=== PATIENT | female | born 1980 | race Caucasian/White ===

== ENCOUNTER → 2023-05-20 07:44 | Outpatient (REF) | payer OTHER, SELFPAY | LOC: PNTC 07:44 | PROVIDERS: ATTENDING PHYSICIAN Obstetrics & Gynecology | DX: O99.210 Obesity complicating pregnancy, unspecified trimester (principal); O09.529 Supervision of elderly multigravida, unspecified trimester; O35.5XX0 Maternal care for (suspected) damage to fetus by drugs, not applicable or unspecified | CPT/HCPCS: 76805 ==

== ENCOUNTER → 2023-06-17 13:23 | Outpatient (REF) | payer OTHER, SELFPAY | LOC: PNTC 13:23 | PROVIDERS: ATTENDING PHYSICIAN Obstetrics & Gynecology | DX: O09.529 Supervision of elderly multigravida, unspecified trimester (principal); O35.5XX0 Maternal care for (suspected) damage to fetus by drugs, not applicable or unspecified; O44.00 Complete placenta previa NOS or without hemorrhage, unspecified trimester | CPT/HCPCS: 76811; 76817 ==

== ENCOUNTER 2023-07-12 20:57 | Emergency (ER) | payer OTHER, SELFPAY ==
[2023-07-12 21:05] VITALS: BP 134/87
[2023-07-12] MEDS: NSS 1000 IV (21:41)
[2023-07-12 21:44] LABS: % Basophils 0.3 % (0-2); % Immature Granulocytes 0.7 % (0-0.5); % Lymphocytes 13.3 % (20.5-51.1); % Monocytes 4.8 % (1.7-9.3); % Neutrophils 78.9 % (42.2-75.2); Absolute Basophils 0.1 10^3/uL (0-0.2); Absolute Eosinophils 0.3 10^3/uL (0-0.7); Absolute Immature Granulocytes 0.1 10^3/uL (0-0.05); Absolute Lymphocytes 2.2 10^3/uL (1.2-3.4); Absolute Monocytes 0.8 10^3/uL (0.1-0.6); Absolute Neutrophils 12.8 10^3/uL (1.4-6.5); Hematocrit 33.5 % (37.0-47.0); Mean Corp Hgb Conc. 35.8 g/dL (33.0-37.0); Mean Corpuscular Hgb 30.2 pg (27.0-31.0); Mean Corpuscular Volume 84.4 fL (81.0-99.0); Mean Platelet Volume 10.7 fL (7.4-10.4); Nucleated Red Blood Cells % 0 %; Platelet Count 225 10^3/uL (130-400); Red Blood Cell Count 3.97 10^6/uL (4.20-5.40); Red Cell Dist. Width 14.3 % (11.5-14.5); White Blood Cell Count 16.3 10^3/uL (4.8-10.8)
--- NOTE | 2023-07-12 21:47 | ED.GENMED ---
Addendum entered and electronically signed by Reynaldo Salmon PA-C 07/13/23 10:48:
Patient was seen by psychiatry. Patient would be able to be placed at [facility] however prior to disposition there patient will need a ultrasound for her due to a history of placenta previa. Ultrasound was ordered to further evaluate with
anticipation of patient being dispositioned to [facility].
Original Note:
History of Present Illness
General
Chief Complaint: Overdose Intentional
Source: patient
Exam Limitations: none
Time Seen by Provider: 07/12/23 21:25
Nursing documentation reviewed up to this point in time: agreed with
Travel History
Have you had any contact with someone who has COVID-19?: No
Do you have any symptoms of coronavirus? Fever > 100 degrees, chills, cough, shortness of breath, sore throat, loss of taste or smell, muscle aches, or headache?: No
History of Present Illness
History of Present Illness:
43-year-old female with past medical history of asthma, anxiety, history of polysubstance use who is currently 6 months who presents to the emergency department for evaluation after overdose on Adderall. Patient reports that she has been
very overwhelmed recently between the and some domestic problems�she says that she has been having issues with her son's behavior. She says that today she was extremely overwhelmed and was having trouble focusing and so she took a few
doses of Adderall�she says that she obtained 10 mg tablets and throughout the course of the day she took she thinks approximately nine total 10 mg tablets. She estimates first ingestion was around 2 PM and last ingestion was around 6:30 PM. She
says that as the evening went on she began to feel palpitations, anxiety and family noticed that his behavior was pressured and hyperactive. She says that she took a dose of Xanax 0.5 mg to treat the symptoms and had family bring her to the
emergency room to be assessed. She says that the Xanax completely resolved her symptoms and she now is asymptomatic. She denies any chest pain, palpitations, shortness of breath. Denies any headache. Denies any abdominal pain. She has not had
any vaginal bleeding or leakage of fluid. She does admit to feeling very stressed and overwhelmed and is very regretful that she took these medications today. She tells me that she did not intend to kill herself but just needed 'some clarity.'
She denies any suicidal ideation to me. She says that she did have a distant history of suicide attempt when she was a teenager after her mom .
Past History
Past History
ED Past Medical History: Asthma, GERD, Seizures and Other (Anxiety)
ED Past Surgical History: Orthopedic
Social History
Tobacco: Non-smoker
Alcohol: None
Drug: None
Personal: Other
Living: with family
Employment: Other
Family History
Family History: Other (nc)
Review of Systems
Review of Systems
All Other Systems: ROS reviewed and negative except as documented in HPI and ROS
Constitutional: Denies fever
Respiratory: Denies cough or trouble breathing
Cardiac: Denies chest pain, diaphoresis, palpitations or syncope
ABD/GI: Denies abdominal pain, nausea, vomiting or diarrhea
: Denies flank pain
Musculoskeletal: Denies neck pain or back pain
Neurological: Denies dizzy, headache, weakness or numbness
Psychiatric: Reports anxiety; Denies suicidal or hallucinations
Phy Exam
Physical Exam
Physical Exam:
General: Awake, alert; patient is tearful and anxious
Head: Normocephalic, atraumatic
Eyes: Conjunctiva normal, EOMI, pupils 5 mm and reactive to light bilaterally
Throat: Airway intact, handling secretions, moist mucous membranes
Neck: Trachea midline, supple without meningismus
Lungs: Clear to auscultation bilaterally, no wheezing, rales, rhonchi
Heart: Tachycardia with regular rhythm, no murmurs, gallops, or rubs
Abd: Soft, nontender, appropriate size for gestational age
Neuro: Cranial nerves grossly intact, speech fluid
Skin: no rash, dry
Extremities: No edema in extremities, equal pulses in all extremities
Scores
Heart Failure Risk
Heart Failure Risk Score: Not Applicable
Heart Score for Chest Pain Patients
STEMI patient?: Not applicable
Withdrawal Assessment of Alcohol
Withdrawal Assessment Completed?: Not applicable
Course
Orders/Labs/Results
Orders:
Orders
07/12/23 21:08
Electrocardiogram (*1) Urgent
Reason for Study: Tachycardia
EKG- Treatment ONCE
07/12/23 21:27
Electrocardiogram (*1) Urgent
Reason for Study: QTc Monitoring
Crisis Consult Routine
Reason for Consult: overdose
EKG- Treatment ONCE
07/12/23 21:28
Acetaminophen Urgent
Alcohol Urgent
Complete Blood Count/With Diff Urgent
Comprehensive Metabolic Panel Urgent
Salicylate Urgent
0.9% Sodium Chloride 1000 ml [Nss] 1,000 ml IV BOLUS
07/12/23 22:51
Drug Screen, Urine [Urine Drug Abuse Screen] Urgent
Date Specimen was Collected: 07/12/23
Time Specimen was Collected: 22:47
Fentanyl, Urine Urgent
Abnormal Lab Results
07/12/23 07/12/23
21:28 22:51
WBC 16.3 H 10^3/uL
(4.8-10.8)
RBC 3.97 L 10^6/uL
(4.20-5.40)
Hct 33.5 L %
(37.0-47.0)
MPV 10.7 H fL
(7.4-10.4)
Abs Immat Gran (auto) 0.1 H 10^3/uL
(0-0.05)
Absolute Neuts (auto) 12.8 H 10^3/uL
(1.4-6.5)
Absolute Monos (auto) 0.8 H 10^3/uL
(0.1-0.6)
Immature Gran % 0.7 H %
(0-0.5)
Neutrophils % 78.9 H %
(42.2-75.2)
Lymphocytes % 13.3 L %
(20.5-51.1)
Sodium 132 L mmol/L
(135-145)
Chloride 108 H mmol/L
(98-107)
Carbon Dioxide 19 L mmol/L
(22-30)
Creatinine 0.5 L mg/dL
(0.6-1.0)
Salicylates < 1.0 L mg/dl
(2.0-20.0)
Ur Buprenorphine Positive H
(Negative)
Acetaminophen < 10 L ug/ml
(10-30)
Ur Amphetamines Screen Positive H
(Negative)
U Benzodiazepines Scrn Positive H
(Negative)
07/12/23 21:28
07/12/23 22:30
Vital Signs
Initial and Last Documented VS:
Initial Vital Signs
Temp Pulse Resp BP Pulse Ox
36.7 C 102 18 134/87 99
07/12/23 21:05 07/12/23 21:05 07/12/23 21:05 07/12/23 21:05 07/12/23 21:05
Last Documented Vital Signs
Temp Pulse Resp BP Pulse Ox
36.7 C 77 14 114/57 99
07/12/23 21:05 07/12/23 23:15 07/12/23 23:15 07/12/23 23:00 07/12/23 21:05
MDM/Problems Addressed
Differential Diagnosis Includes:
Overdose
MDM/Problems Addressed:
43-year-old female presents to the emergency room for evaluation after intentional overdose on Adderall�she says that she did this more for symptomatic relief of feeling of being overwhelmed/lack of focus rather than an attempted suicide. She did
take a single dose of 0.5 mg Xanax to treat the symptoms of her Adderall overdose, no other ingestions tonight. She currently feels well denies any complaints aside from feeling overwhelmed and upset about her actions. Vital signs significant only
for mild tachycardia with a heart rate of 102. Exam as above. Currently no significant sympathomimetic toxidrome. Will plan to place an IV send labs including a CBC and a CMP, Tylenol and salicylate levels, alcohol level and UDS. Will check a
screening EKG. I did discuss the case with [facility] Control [facility] recommended supportive care with benzos as needed for sympathomimetic symptoms, 6-hour observation from last ingestion which was reportedly around 6�6:30 PM. Discussed case with
COMPLIANCE AND CONTROL ANALYST and they will perform a bedside nonstress test. Will provide some IV fluids. Reassess after the above. She denies being actively suicidal to me and denies that this was a suicide attempt to me; nevertheless will have our crisis team doing
evaluation.
Labs reviewed: CBC shows slight leukocytosis likely reactive, CMP no clinically significant abnormalities. Tylenol and salicylate levels are negative, alcohol level negative. UDS positive for benzos and amphetamines in keeping with her admitted
ingestions this evening also positive for buprenorphine. EKG shows narrow complex QRS with normal QTc. Patient awake and alert very well-appearing normal vitals, heart rate in the 80s, normal blood pressure. She is much more calm. OB nurse at
bedside performing nonstress test. Crisis evaluation pending.
Nonstress test reassuring. Patient has remained awake and alert with reassuring vitals throughout her observation here she is now 6 hours from last ingestion and has been asymptomatic since arrival in the emergency room. At this point she is
cleared from medical perspective regarding her overdose. She is much more calm and no longer tearful, requesting to speak with crisis to discuss mental health options although again she continues to deny suicidal intent or ideation at this point.
Crisis coming to bedside to evaluate.
Crisis evaluated patient and will plan for inpatient psychiatric treatment under [facility] for depression and anxiety culminating in overdose today. Will continue to observe pending psychiatric placement.
Chronic conditions affecting care:
Anxiety
*Pulse Oximetry
Patient hypoxic: no
*Critical Care Note
Total Time (30-74mins, 75-104mins- exclusive of procedures): Not Applicable
Data Reviewed
Source: patient
Patient Management
Discussion with other providers: Engineer Technician (COMPLIANCE AND CONTROL ANALYST) and Other (Discussed with Poison Control Center)
ED Attending Note
-
Portions of this chart may have been created with voice recognition software.� Occasional wrong word or��sound alike� substitutions may have occurred due to the inherent limitations of voice recognition software.
Discharge Plan
Departure
Patient Disposition: Psych Facility
Date of Disposition: 07/12/23
Time of Disposition: 23:39
Patient with high blood pressure during this ER visit?: No
Discharge Problem:
Overdose, Depression affecting , Anxiety
Prescriptions:
No Action
albuterol sulfate [Ventolin HFA] 90 MCG/PUFF HFA aerosol inhaler
1 puff inhalation Q6HPRN PRN (Reason: asthma)
lamotrigine 100 MG tablet
200 mg PO DAILY
clonazepam 0.5 MG tablet
0.5 mg PO BID PRN (Reason: anxiety)
aripiprazole [Abilify] 5 mg Tablet
7.5 mg PO DAILY
pantoprazole [Protonix] 40 mg tablet,delayed release (DR/EC)
40 mg PO BID Qty: 120 0RF
oxycodone 5 mg capsule
5 mg PO Q8H PRN (Reason: severe pain) Qty: 3 0RF
ferrous sulfate 325 mg (65 mg iron) tablet
325 mg PO DAILY Qty: 30 0RF
oxycodone 5 mg capsule
5 mg PO Q8H PRN (Reason: severe pain) Qty: 3 0RF
cephalexin 500 mg capsule
500 mg PO BID 5 Days Qty: 10 0RF
Referrals:
UNKNOWN - PT DOES,NOT KNOW [Family Provider] -
Interventions
Interventions:
*Risk Screen - Suicide Last Done: 07/12/23 21:05
*General Assessment Last Done: 07/12/23 21:05
*Neglect/Abuse Screening Last Done: 07/12/23 21:05
ED- Fall Risk Assessment Last Done: 07/12/23 22:00
*ED COVID-19 Vaccine History Last Done: 07/12/23 21:05
ED- Cardiac Assessment Last Done: 07/12/23 22:00
ED- Neurological Assessment Last Done: 07/12/23 22:00
ED-Psychological Assessment Last Done: 07/12/23 22:00
ED- Pulmonary Assessment Last Done: 07/12/23 22:00
Discharge Date and Time
Print Language: MEXICAN
[2023-07-12 22:07] LABS: ALT (SGPT) 19 U/L (0-35); AST (SGOT) 27 U/L (14-36); Acetaminophen < 10 ug/ml (10-30); Albumin 3.7 g/dl (3.5-5.0); Alkaline Phosphatase 78 U/L (38-126); Blood Urea Nitrogen 8 mg/dl (7-17); Calcium 9.3 mg/dl (8.4-10.2); Carbon Dioxide 19 mmol/L (22-30); Chloride 108 mmol/L (98-107); Glucose 97 mg/dl (70-99); Potassium 3.9 mmol/L (3.5-5.1); Salicylate < 1.0 mg/dl (2.0-20.0); Sodium 132 mmol/L (135-145); Total Bilirubin 0.5 mg/dl (0.2-1.3); Total Protein 6.5 g/dl (6.3-8.2); eGFR > 60.00
[2023-07-12 22:08] LABS: Alcohol None Detected
[2023-07-12 22:54] VITALS: BP 120/61
--- NOTE | 2023-07-12 22:56 | CON.MD ---
Consultation - Medical
-
[id number] P3 003 @24+0 weeks gestation presents to the ER tonight with intentional overdose on Adderall 90 mg. Patient also took a Xanax when she started feeling anxious due to the Adderall. She does have a history of extreme anxiety and takes
multiple psychiatric medications. reportedly not having any any obstetrical symptoms tonight. The ER team is managing the overdose, for which patient is currently clinically stable with normal vital signs, other than mild tachycardia in the 100s.
Requested OB assistance to assess for well-being.
patient was seen in the ED by OB nursing staff this evening. The patient denies contractions, leakage of fluid or vaginal bleeding. She reports normal movement. An NST was performed and was reviewed by me. Baseline 150, reassuring for
gestational age, no contractions.
patient will complete evaluation with the ER staff and with the crisis management team. She was given strong return precautions for any obstetrical complaints and has follow up arranged in the [facility] this coming week and the OB clinic in a couple of
weeks. If patient is admitted for further medical or psychiatric care, please do not hesitate to reach out to OB so that we can perform regular testing for well-being and follow along with the patient's care.
Sabrina Parsons
[2023-07-12 23:00] VITALS: BP 114/57
[2023-07-12 23:09] LABS: Amphetamines Positive (Negative); Barbiturates Negative (Negative); Benzodiazepines Positive (Negative); Buprenorphine Positive (Negative); Cocaine Negative (Negative); Marijuana Negative (Negative); Methadone Negative (Negative); Methamphetamines Negative (Negative); Opiates Negative (Negative); Phencyclidine Negative (Negative); Tricyclic Antidepressants Negative (Negative)
[2023-07-12 23:17] LABS: Fentanyl, Urine Negative (Negative)
[2023-07-13] VITALS (8 sets, daily range): BP systolic 100–119; BP diastolic 42–67; BMI 35.0
[2023-07-13] MEDS: TYLENOL 1000 MG PO (00:09)
[2023-07-13] MEDS: DUONEB 3 ML INH (01:37)
--- NOTE | 2023-07-13 08:07 | EDRN ---
mental health personnel security assistant came out of the crisis room area and made this RN aware that the pt wanted to speak to the nurse, this RN entered the pts room and this RN found the pt hysterically crying stating to this RN, 'I am so sorry i am
just having a rough morning', the pt could barely speak due to crying so hard, this RN helped the pt with deep breathing, the pt was then able to speak, 'I am just so over whelmed with everything in my past i have this partner who loves me so much
and makes me want to be a better person and now i have all of this trauma that i didn't deal with in the past, in the past i used to just pop an oxy and call it a day but last night i took adderall and it makes me crazy and this morning i am just
feeling very over whelmed and i just can't relax', this RN notified Dr. Healyroad
--- NOTE | 2023-07-13 08:27 | EDRN ---
Dr. Vogt is speaking with OBGYN regarding medication that the pt can take for anxiety, this RN notified the pt
[2023-07-13] MEDS: XANAX 0.5 MG PO ×2 (11:22→17:12)
[2023-07-13] MEDS: TYLENOL 650 MG PO (13:49)
[2023-07-13 16:19] LABS: COVID-19 Antigen Negative (Negative)
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
== END 2023-07-13 17:43 ==
LOC: EMR 20:57
PROVIDERS: Emergency Medicine; EMERGENCY PHYSICIAN Emergency Medicine
DX: O99.891 Other specified diseases and conditions complicating pregnancy (principal); T43.622A Poisoning by amphetamines, intentional self-harm, initial encounter; O99.340 Other mental disorders complicating pregnancy, unspecified trimester; F41.9 Anxiety disorder, unspecified; Y92.9 Unspecified place or not applicable; J45.909 Unspecified asthma, uncomplicated; K21.9 Gastro-esophageal reflux disease without esophagitis; G40.909 Epilepsy, unspecified, not intractable, without status epilepticus; Z91.51 Personal history of suicidal behavior
CPT/HCPCS: 99284; 94640; 76801; 76817; 80053; 80143; 80179; 80306; 80307; 82077; 85025; 87811; 93005

== ENCOUNTER → 2023-08-12 07:27 | Outpatient (REF) | payer OTHER, SELFPAY | LOC: PNTC 07:27 | PROVIDERS: ATTENDING PHYSICIAN Obstetrics & Gynecology | DX: O09.529 Supervision of elderly multigravida, unspecified trimester (principal); O99.210 Obesity complicating pregnancy, unspecified trimester; O35.5XX0 Maternal care for (suspected) damage to fetus by drugs, not applicable or unspecified | CPT/HCPCS: 76816; 76817 ==

== ENCOUNTER 2023-08-27 11:03 | Observation (INO) | payer OTHER, SELFPAY ==
[2023-08-27 11:34] VITALS: BP 119/65; BMI 35.1
[2023-08-27 11:41] VITALS: BP 119/65
[2023-08-27 12:44] LABS: % Basophils 0.4 % (0-2); % Eosinophils 2.9 % (0-6); % Immature Granulocytes 0.9 % (0-0.5); % Lymphocytes 12.7 % (20.5-51.1); % Monocytes 4.2 % (1.7-9.3); % Neutrophils 78.9 % (42.2-75.2); Absolute Basophils 0.1 10^3/uL (0-0.2); Absolute Eosinophils 0.4 10^3/uL (0-0.7); Absolute Immature Granulocytes 0.1 10^3/uL (0-0.05); Absolute Lymphocytes 1.7 10^3/uL (1.2-3.4); Absolute Monocytes 0.6 10^3/uL (0.1-0.6); Absolute Neutrophils 10.5 10^3/uL (1.4-6.5); Hematocrit 32.8 % (37.0-47.0); Hemoglobin 11.2 g/dL (12.0-16.0); Mean Corp Hgb Conc. 34.1 g/dL (33.0-37.0); Mean Corpuscular Hgb 29.4 pg (27.0-31.0); Mean Corpuscular Volume 86.1 fL (81.0-99.0); Mean Platelet Volume 10.8 fL (7.4-10.4); Nucleated Red Blood Cells % 0 %; Platelet Count 201 10^3/uL (130-400); Red Blood Cell Count 3.81 10^6/uL (4.20-5.40); Red Cell Dist. Width 13.7 % (11.5-14.5); White Blood Cell Count 13.3 10^3/uL (4.8-10.8)
[2023-08-27 12:46] LABS: Urine Albumin Negative (Neg - Trace); Urine Bilirubin Negative (Negative); Urine Character Clear (Clear); Urine Color Yellow; Urine Glucose Negative (Negative); Urine Ketone Negative (Negative); Urine Leukocyte 1+ (Negative); Urine Nitrite Negative (Negative); Urine Occult Blood Negative (Negative); Urine Specific Gravity 1.005 (<1.030); Urine Urobilinogen Negative (Neg - 1+)
[2023-08-27 13:04] LABS: Amphetamines Negative (Negative); Barbiturates Negative (Negative); Benzodiazepines Positive (Negative); Buprenorphine Negative (Negative); Cocaine Negative (Negative); Marijuana Negative (Negative); Methadone Negative (Negative); Methamphetamines Negative (Negative); Opiates Negative (Negative); Phencyclidine Negative (Negative); Tricyclic Antidepressants Negative (Negative)
[2023-08-27 13:07] LABS: ALT (SGPT) 26 U/L (0-35); AST (SGOT) 33 U/L (14-36); Albumin 3.3 g/dl (3.5-5.0); Alkaline Phosphatase 87 U/L (38-126); Blood Urea Nitrogen 8 mg/dl (7-17); Calcium 9.1 mg/dl (8.4-10.2); Carbon Dioxide 23 mmol/L (22-30); Chloride 107 mmol/L (98-107); Estimated Creatinine Clearance > 125 ml/min; Glucose 92 mg/dl (70-99); Potassium 4.3 mmol/L (3.5-5.1); Sodium 135 mmol/L (135-145); Total Bilirubin 0.3 mg/dl (0.2-1.3); Total Protein 6.1 g/dl (6.3-8.2); eGFR > 60.00
[2023-08-27 13:30] LABS: Fentanyl, Urine Negative (Negative)
[2023-08-27 15:04] LABS: Urine Red Blood Cell 0-2 /HPF (0-2)
== END 2023-08-27 17:14 | disposition home or self-care (01) ==
LOC: LDRP 11:03
PROVIDERS: ADMITTING PHYSICIAN Obstetrics & Gynecology
DX: O46.93 Antepartum hemorrhage, unspecified, third trimester (principal); Z3A.30 30 weeks gestation of pregnancy; O09.523 Supervision of elderly multigravida, third trimester; O99.343 Other mental disorders complicating pregnancy, third trimester; F32.A Depression, unspecified; F41.9 Anxiety disorder, unspecified; F13.90 Sedative, hypnotic, or anxiolytic use, unspecified, uncomplicated; F11.21 Opioid dependence, in remission; J45.909 Unspecified asthma, uncomplicated; D72.829 Elevated white blood cell count, unspecified; Z87.891 Personal history of nicotine dependence; Z91.52 Personal history of nonsuicidal self-harm; Z91.018 Allergy to other foods; Z88.5 Allergy status to narcotic agent; Z88.8 Allergy status to other drugs, medicaments and biological substances
CPT/HCPCS: 59025; 76805; 76816; 80053; 80306; 80307; 81003; 81015; 85025; 85460; 86850; 86900; 86901; 87086; G0378

== ENCOUNTER → 2023-09-09 07:59 | Outpatient (REF) | payer OTHER, SELFPAY | LOC: PNTC 07:59 | PROVIDERS: ATTENDING PHYSICIAN Obstetrics & Gynecology | DX: O09.529 Supervision of elderly multigravida, unspecified trimester (principal); O35.5XX0 Maternal care for (suspected) damage to fetus by drugs, not applicable or unspecified | CPT/HCPCS: 59025; 76815 ==

== ENCOUNTER → 2023-09-16 07:14 | Outpatient (REF) | payer OTHER, SELFPAY | LOC: PNTC 07:14 | PROVIDERS: ATTENDING PHYSICIAN Obstetrics & Gynecology | DX: O09.519 Supervision of elderly primigravida, unspecified trimester (principal); O99.320 Drug use complicating pregnancy, unspecified trimester | CPT/HCPCS: 59025; 76815 ==

== ENCOUNTER → 2023-09-23 07:33 | Outpatient (REF) | payer OTHER, SELFPAY | LOC: PNTC 07:33 | PROVIDERS: ATTENDING PHYSICIAN Obstetrics & Gynecology | DX: O09.519 Supervision of elderly primigravida, unspecified trimester (principal); O99.320 Drug use complicating pregnancy, unspecified trimester | CPT/HCPCS: 59025; 76816 ==

== ENCOUNTER → 2023-09-30 07:26 | Outpatient (REF) | payer OTHER, SELFPAY | LOC: PNTC 07:26 | PROVIDERS: ATTENDING PHYSICIAN Obstetrics & Gynecology | DX: O09.529 Supervision of elderly multigravida, unspecified trimester (principal); O35.5XX0 Maternal care for (suspected) damage to fetus by drugs, not applicable or unspecified | CPT/HCPCS: 59025; 76815 ==

== ENCOUNTER → 2023-10-07 07:37 | Outpatient (REF) | payer OTHER, SELFPAY | LOC: PNTC 07:37 | PROVIDERS: ATTENDING PHYSICIAN Obstetrics & Gynecology | DX: O09.529 Supervision of elderly multigravida, unspecified trimester (principal); O35.5XX0 Maternal care for (suspected) damage to fetus by drugs, not applicable or unspecified | CPT/HCPCS: 59025; 76815 ==

== ENCOUNTER 2023-10-12 22:49 | Inpatient (IN) | payer OTHER, SELFPAY ==
[2023-10-12 22:59] VITALS: BMI 38.1
[2023-10-12] MEDS: LR 1000 IV (23:15)
[2023-10-13 00:07] LABS: % Basophils 0.4 % (0-2); % Eosinophils 4.2 % (0-6); % Immature Granulocytes 1.8 % (0-0.5); % Lymphocytes 12.9 % (20.5-51.1); % Neutrophils 74.7 % (42.2-75.2); Absolute Basophils 0.1 10^3/uL (0-0.2); Absolute Eosinophils 0.8 10^3/uL (0-0.7); Absolute Immature Granulocytes 0.3 10^3/uL (0-0.05); Absolute Lymphocytes 2.3 10^3/uL (1.2-3.4); Absolute Monocytes 1.1 10^3/uL (0.1-0.6); Absolute Neutrophils 13.6 10^3/uL (1.4-6.5); Hematocrit 33.4 % (37.0-47.0); Hemoglobin 11.6 g/dL (12.0-16.0); Mean Corp Hgb Conc. 34.7 g/dL (33.0-37.0); Mean Corpuscular Volume 83.5 fL (81.0-99.0); Mean Platelet Volume 11.3 fL (7.4-10.4); Nucleated Red Blood Cells % 0 %; Platelet Count 207 10^3/uL (130-400); Red Cell Dist. Width 13.9 % (11.5-14.5); White Blood Cell Count 18.2 10^3/uL (4.8-10.8)
[2023-10-13] MEDS: PENICILLIN 110 UNITS IV (00:31)
[2023-10-13] MEDS: PITOCIN 30 UNITS/NSS 500 ML IV (01:28)
[2023-10-13] MEDS: FENTANYL/BUPIVACAINE 100 EPIDURAL (02:52)
[2023-10-13] MEDS: SUBLIMAZE 100 MCG EPIDURAL (02:52)
[2023-10-13] MEDS: LR 1000 IV ×2 (03:15→04:15)
[2023-10-13 03:26] VITALS: BP 130/60
[2023-10-13 03:45] LABS: Amphetamines Negative (Negative); Barbiturates Negative (Negative); Benzodiazepines Positive (Negative); Buprenorphine Negative (Negative); Cocaine Negative (Negative); Marijuana Negative (Negative); Methadone Negative (Negative); Methamphetamines Negative (Negative); Opiates Negative (Negative); Phencyclidine Negative (Negative); Tricyclic Antidepressants Negative (Negative)
[2023-10-13] MEDS: PENICILLIN 55 UNITS IV ×2 (03:49→08:06)
[2023-10-13 04:04] LABS: Fentanyl, Urine Negative (Negative)
[2023-10-13] MEDS: LATUDA 40 MG PO (08:08)
[2023-10-13] MEDS: LAMICTAL 150 MG PO (08:11)
[2023-10-13] MEDS: LAMICTAL PO (09:36)
[2023-10-13] MEDS: PRENATAL PLUS 1 TABLET PO (09:42)
[2023-10-13] MEDS: ZOLOFT 100 MG PO (09:43)
[2023-10-13] MEDS: TYLENOL 650 MG PO ×3 (11:48→22:56)
[2023-10-13] MEDS: MOTRIN 600 MG PO (22:56)
[2023-10-14] MEDS: TYLENOL 650 MG PO ×2 (05:51→14:10)
[2023-10-14] MEDS: MOTRIN 600 MG PO ×3 (05:51→22:13)
[2023-10-14] MEDS: PROTONIX 40 MG PO (08:29)
[2023-10-14] MEDS: PRENATAL PLUS 1 TABLET PO (08:29)
[2023-10-14] MEDS: ZOLOFT 100 MG PO (08:30)
[2023-10-14] MEDS: LAMICTAL 150 MG PO (08:30)
[2023-10-14] MEDS: LATUDA 40 MG PO (08:31)
--- NOTE | 2023-10-14 10:50 | CM ---
CM met with new mother Leia at bedside
Mom reports her daughters name is Christine Dickson
Mom reports she lives at listed address - 2 story condo with her boyfriend and 2 children - (14yo Marry and 12yo Armin)
Mom reports she has supplies for her including crib and car seat
[employer] for [employer] - [employer] and Antonette
Feeding - plans to bottle feed infant
Mom reports FOB is supportive and she has some family support
Momgiven information for WIC program
Mom acknowledges she has a hx of depression/anxiety. She sees her family doctor regularly who prescribed ativan fo her anxiety
Mom made aware because of + Tox screen and infants + mec for benzodiazepines [facility] will be notified - Mom admitted past history with C&Y 'With my son' - she did not share information. Mom reports she 'Has no problems with C&Y
involvement'.
[facility] called [facility] ([facility])
Spoke with Maria Eugenia Chairez
Report made and will be forwarded to [facility]
CM will follow for C&Y recommendations regarding discharge plan
[2023-10-14 11:38] LABS: Syphilis/T. pallidum Ab Reflex Negative (Negative)
[2023-10-14] MEDS: TYLENOL #3 1 TABLET PO ×2 (17:57→22:12)
[2023-10-15] MEDS: TYLENOL #3 1 TABLET PO ×2 (05:02→11:43)
[2023-10-15] MEDS: MOTRIN 600 MG PO ×2 (05:03→11:43)
[2023-10-15] MEDS: PRENATAL PLUS 1 TABLET PO (07:57)
[2023-10-15] MEDS: SENOKOT-S 1 TABLET PO (07:58)
[2023-10-15] MEDS: LATUDA 40 MG PO (07:58)
[2023-10-15] MEDS: PROTONIX 40 MG PO (07:58)
[2023-10-15] MEDS: ZOLOFT 100 MG PO (07:59)
[2023-10-15] MEDS: LAMICTAL 150 MG PO (08:08)
--- NOTE | 2023-10-15 09:04 | CM ---
CM called [facility] [phone]
Spoke with agency service representative at Intake
Received referral - reporting as mother had Rx for Benzodiazepines(Ativan) infant may be d/c'ed with mother
C&Y to f/u with mother after d/c
[2023-10-15] MEDS: M-M-R II 0.5 ML SC (11:44)
== END 2023-10-15 15:31 | disposition home or self-care (01) | DRG 807 ==
LOC: LDRP 22:49
PROVIDERS: Obstetrics & Gynecology; ADMITTING PHYSICIAN Obstetrics & Gynecology
PROC: 10E0XZZ Delivery of Products of Conception, External Approach (ICD-10-PCS; 2023-10-13)
PROC: 0KQM0ZZ Repair Perineum Muscle, Open Approach (ICD-10-PCS; 2023-10-13)
PROC: 3E0234Z Introduction of Serum, Toxoid and Vaccine into Muscle, Percutaneous Approach (ICD-10-PCS; 2023-10-15)
DX: O42.02 Full-term premature rupture of membranes, onset of labor within 24 hours of rupture (principal); Z37.0 Single live birth; Z3A.37 37 weeks gestation of pregnancy; O99.824 Streptococcus B carrier state complicating childbirth; O70.1 Second degree perineal laceration during delivery; O99.344 Other mental disorders complicating childbirth; F41.9 Anxiety disorder, unspecified; F32.A Depression, unspecified; J45.909 Unspecified asthma, uncomplicated; F11.11 Opioid abuse, in remission; F13.90 Sedative, hypnotic, or anxiolytic use, unspecified, uncomplicated; O99.214 Obesity complicating childbirth; R07.9 Chest pain, unspecified; H53.9 Unspecified visual disturbance; R10.32 Left lower quadrant pain; Z23 Encounter for immunization; Z83.3 Family history of diabetes mellitus; Z81.8 Family history of other mental and behavioral disorders; Z91.018 Allergy to other foods; Z88.8 Allergy status to other drugs, medicaments and biological substances; Z87.440 Personal history of urinary (tract) infections; Z87.01 Personal history of pneumonia (recurrent)
CPT/HCPCS: 88307; 80306; 80307; 85014; 85018; 85025; 86780; 86850; 86900; 86901; 90707

== ENCOUNTER 2024-09-02 10:04 | Emergency (ER) | payer OTHER, SELFPAY ==
[2024-09-02 10:06] VITALS: BP 102/63
[2024-09-02 10:32] LABS: Urine Albumin 2+ (Neg - Trace); Urine Bilirubin Negative (Negative); Urine Character Cloudy (Clear); Urine Color Yellow; Urine Glucose Negative (Negative); Urine Ketone Negative (Negative); Urine Leukocyte 3+ (Negative); Urine Nitrite Negative (Negative); Urine Occult Blood 3+ (Negative); Urine Specific Gravity 1.025 (<1.030); Urine Urobilinogen 1+ (Neg - 1+)
--- NOTE | 2024-09-02 10:53 | EDRN ---
This RN assumed care of this pt at this time. Marlen SAN in to see pt.
--- NOTE | 2024-09-02 10:54 | ED.GENMED ---
History of Present Illness
General
Chief Complaint: Abdominal Symptoms
Source: patient
Time Seen by Provider: 09/02/24 10:45
History of Present Illness
History of Present Illness:
Note:
CHIEF COMPLAINT(S)
Abdominal pain and vomiting.
HISTORY OF PRESENT ILLNESS
The patient is a 44-year-old female with a past medical history of an ulcer, presenting with persistent vomiting and abdominal pain. Symptoms reportedly began approximately two to three months ago. The patient was previously taking semaglutide
(Wegovy) and experienced initial weight loss but discontinued the medication over two months ago. Vomiting occurs after ingestion of food or liquids and is sometimes accompanied by abdominal pain, described as being located centrally and exacerbated
by consumption. Pain varies with position but is relieved by certain positions, and breathing intensifies the discomfort. The patient denies fever, diarrhea, and hematemesis. There is a history of asthma but no recent exacerbations noted. The
patient reports increased frequency and urgency of urination with incomplete voiding.
The patient is currently taking lamotrigine (Lamictal), sertraline (Zoloft), brexpiprazole (Rexulti), and lorazepam (Ativan), with brexpiprazole initiated approximately a week and a half ago. The symptoms predate the introduction of this medication.
The patient reports previously high caffeine intake which has been reduced.
ADDITIONAL HISTORY OBTAINED FROM SOURCES OTHER THAN THE PATIENT
SOCIAL HISTORY
The patient has a history of high caffeine intake, which has been curtailed.
PHYSICAL EXAM
-Heart: Regular rate and rhythm
-Lungs: Clear no wheeze
- Abdominal examination: Pain localized to the central area upon palpation, with tenderness noted in the upper abdomen. No rebound tenderness noted.
- Vital signs and nursing notes reviewed.
PLAN
- Initiate an intravenous line and administer fluids and antiemetics for nausea.
- Order blood tests to evaluate liver enzymes and assess other potential abnormalities.
- Obtain a CT scan of the abdomen to investigate possible sources of inflammation or obstruction.
- Administer pain relief as needed.
DIFFERENTIAL DIAGNOSIS
The Differential Diagnosis includes, in no particular order and is not limited to:
1. Gastric ulcer exacerbation
2. Gastroenteritis
3. Gastric outlet obstruction
4. Intestinal obstruction
5. Pancreatitis
6. Cholecystitis
7. Adverse effects of prior semaglutide (Wegovy) use less likely
Past History
Past History
ED Past Medical History: Asthma, GERD, Seizures and Other (Anxiety)
ED Past Surgical History: Orthopedic
Social History
Tobacco: Non-smoker
Alcohol: None
Drug: None
Personal: Other
Living: with family
Employment: Other
Family History
Family History: Other (nc)
Phy Exam
Physical Exam
Physical Exam:
see above
Course
Orders/Labs/Results
Orders:
Orders
09/02/24 10:15
Urinalysis Reflex To Culture Urgent
Date Specimen was Collected: 09/02/24
Time Specimen was Collected: 10:12
Urine Microscopic Reflex Cult Urgent
Urine Culture Urgent
TAO Source: U
Specimen Description:
Date Specimen was Collected: 09/02/24
Time Specimen was Collected: 10:12
09/02/24 10:53
0.9% Sodium Chloride 1000 ml [Nss] 1,000 ml IV BOLUS
Famotidine [Pepcid] 20 mg IV NOW STA
Ondansetron Injectable [Zofran] 4 mg IV NOW STA
Test Result ONCE
09/02/24 10:54
CT Abd/pelvis W Iv Cont Urgent
Comment:
Reason For Exam: abdominal pain, vomiting
09/02/24 11:06
Complete Blood Count/With Diff Urgent
Comprehensive Metabolic Panel Urgent
HCG, Serum Qualitative Screen Urgent
Lipase Urgent
09/02/24 12:26
HYDROmorphone [Dilaudid] 0.5 mg IV NOW STA
09/02/24 14:02
Mag Hydrox/Al Hydrox/Simeth [Maalox] 30 ml Phenobarb/Hyoscy/Atropine/Scop [] 10 ml Viscous Lidocaine 2% [Xylocaine Viscous Cup] 10 ml PO NOW
09/02/24 14:03
Mag Hydrox/Al Hydrox/Simeth [Maalox] 30 ml .ROUTE .STK-MED ONE
Phenobarb/Hyoscy/Atropine/Scop [] 10 ml .ROUTE .STK-MED ONE
Viscous Lidocaine 2% [Xylocaine Viscous Cup] 15 ml .ROUTE .STK-MED ONE
Abnormal Lab Results
09/02/24 09/02/24
10:15 11:06
MPV 11.6 H fL
(7.4-10.4)
Absolute Eos (auto) 2.1 H 10^3/uL
(0-0.7)
Eosinophils % 21.8 H %
(0-6)
Chloride 108 H mmol/L
(98-107)
Ur Occult Blood Reflex 3+ A
(Negative)
Leukocyte Esterase Rfl 3+ A
(Negative)
Urine RBC 11-15 A /HPF
(0-2)
Urine WBC (Reflex) 40-50 A /HPF
(0-5)
Urine Bacteria (Reflex) Many A
(Negative)
Urine Albumin (Reflex) 2+ A
(Neg - Trace)
09/02/24 11:06
09/02/24 11:06
Vital Signs
Initial and Last Documented VS:
Initial Vital Signs
Temp Pulse Resp BP Pulse Ox
98.4 F 79 18 102/63 100
09/02/24 10:06 09/02/24 10:06 09/02/24 10:06 09/02/24 10:06 09/02/24 10:06
Last Documented Vital Signs
Temp Pulse Resp BP Pulse Ox
98.4 F 73 16 90/50 100
06/19/25 10:06 09/02/24 14:00 09/02/24 14:00 09/02/24 14:00 09/02/24 14:00
*Pulse Oximetry
SaO2: 100
Oxygen Mode of Delivery: Room air
Patient hypoxic: no
*Critical Care Note
Total Time (30-74mins, 75-104mins- exclusive of procedures): Not Applicable
Update Note
Update Note:
CT shows large amount of stool suggest constipation and questionable enteritis. Recommend stool softeners and bland diet. No indication for admission. Stable for discharge
ED Attending Note
-
Portions of this chart may have been created with voice recognition software.� Occasional wrong word or��sound alike� substitutions may have occurred due to the inherent limitations of voice recognition software.
Discharge Plan
Departure
Patient Disposition: Home (Routine Discharge)
Date of Disposition: 09/02/24
Time of Disposition: 14:32
Patient with high blood pressure during this ER visit?: No
Discharge Problem:
Abdominal pain
Instructions: Abdominal Pain
Prescriptions:
No Action
albuterol sulfate [Ventolin HFA] 90 MCG/PUFF HFA aerosol inhaler
2 puff inhalation Q6HPRN PRN (Reason: asthma)
lamotrigine 100 MG tablet
150 mg PO DAILY
vit-iron fum-folic ac 65 mg iron- 1 mg Tablet
1 tab PO DAILY
sertraline [Zoloft] 25 mg Tablet
100 mg PO DAILY
lurasidone [Latuda] 40 mg Tablet
40 mg PO DAILY
lorazepam [Ativan] 0.5 mg Tablet
0.5 mg PO DAILY PRN (Reason: anxiety)
pantoprazole 40 mg Tablet,Delayed Release (Dr/Ec)
40 mg PO DAILY
ibuprofen 200 mg tablet
600 mg PO Q6HPRN PRN (Reason: moderate pain/cramps) Qty: 0 0RF
acetaminophen 325 mg Tablet
650 mg PO Q4HPRN PRN (Reason: mild pain) Qty: 0 0RF
Referrals:
Donovan Cordero MD [Active, Gastroenterology]
Dewayne Prather CRNP [Family Provider, Internal Medicine]
Activity Restrictions/Additional Instructions:
Use stool softeners if needed for constipation. Eat a bland diet. Drink plenty of fluids. Return if worse otherwise follow-up with GI
Interventions
Interventions:
*Risk Screen - Suicide Last Done: 09/02/24 11:30
*General Assessment Last Done: 09/02/24 11:16
*Neglect/Abuse Screening Last Done: 09/02/24 11:29
*ED- Fall Risk Assessment Last Done: 09/02/24 11:16
*ED COVID-19 Vaccine History Last Done: 09/02/24 11:16
IT-[facility] Assessment Last Done: 09/02/24 11:17
Discharge Date and Time
Print Language: BAHAMIAN
[2024-09-02] MEDS: NSS 1000 IV (11:13)
[2024-09-02] MEDS: ZOFRAN 4 MG IV (11:14)
[2024-09-02] MEDS: PEPCID 20 MG IV (11:14)
[2024-09-02 11:15] VITALS: BMI 28.7
[2024-09-02 11:22] VITALS: BP 102/52
[2024-09-02 11:52] LABS: Urine Squamous Cell >30 /LPF (Few)
[2024-09-02 11:54] LABS: Urine Amorphous Seen
[2024-09-02 11:55] LABS: Urine White Cell 40-50 /HPF (0-5)
[2024-09-02 11:56] LABS: Urine Bacteria Many (Negative)
[2024-09-02 11:57] LABS: Hematocrit 39.4 % (37.0-47.0); Hemoglobin 13.1 g/dL (12.0-16.0); Mean Corp Hgb Conc. 33.2 g/dL (33.0-37.0); Mean Corpuscular Hgb 29.4 pg (27.0-31.0); Mean Corpuscular Volume 88.3 fL (81.0-99.0); Mean Platelet Volume 11.6 fL (7.4-10.4); Platelet Count 214 10^3/uL (130-400); Red Blood Cell Count 4.46 10^6/uL (4.20-5.40); Red Cell Dist. Width 13.6 % (11.5-14.5); White Blood Cell Count 9.7 10^3/uL (4.8-10.8)
[2024-09-02 12:00] VITALS: BP 98/46
[2024-09-02 12:13] LABS: HCG, Serum Qualitative Screen Negative
[2024-09-02 12:16] LABS: ALT (SGPT) 18 U/L (0-35); AST (SGOT) 24 U/L (14-36); Albumin 3.7 g/dl (3.5-5.0); Alkaline Phosphatase 56 U/L (38-126); Blood Urea Nitrogen 14 mg/dl (7-17); Calcium 8.8 mg/dl (8.4-10.2); Carbon Dioxide 25 mmol/L (22-30); Chloride 108 mmol/L (98-107); Estimated Creatinine Clearance 88 ml/min; Glucose 91 mg/dl (70-99); Lipase 30 U/L (23-300); Potassium 3.9 mmol/L (3.5-5.1); Sodium 140 mmol/L (135-145); Total Bilirubin 0.4 mg/dl (0.2-1.3); Total Protein 6.7 g/dl (6.3-8.2); eGFR > 60.00
[2024-09-02] MEDS: DILAUDID 0.5 MG IV (12:30)
[2024-09-02 12:58] LABS: % Basophils 0.3 % (0-2); % Eosinophils 21.8 % (0-6); % Immature Granulocytes 0.3 % (0-0.5); % Lymphocytes 22.5 % (20.5-51.1); % Monocytes 4.8 % (1.7-9.3); % Neutrophils 50.3 % (42.2-75.2); Absolute Eosinophils 2.1 10^3/uL (0-0.7); Absolute Lymphocytes 2.2 10^3/uL (1.2-3.4); Absolute Monocytes 0.5 10^3/uL (0.1-0.6); Absolute Neutrophils 4.9 10^3/uL (1.4-6.5); Nucleated Red Blood Cells % 0 %
--- NOTE | 2024-09-02 13:22 | EDRN ---
Pt states that prior to CT scan upon standing her pain was 0/10 though on return to room from CT scan is now 9/10
[2024-09-02 13:25] VITALS: BP 97/42
--- NOTE | 2024-09-02 13:52 | EDRN ---
Pt remains in pain 11/24 in mid abdomen. This RN spoke to pt and informed her that awaiting CT results per Marlen SAN at this time.
[2024-09-02 14:00] VITALS: BP 90/50
[2024-09-02] MEDS: MAALOX 50 PO (14:06)
--- NOTE | 2024-09-02 14:26 | EDRN ---
Marlen SAN in room w/ pt at this time.
== END 2024-09-02 14:41 | disposition home or self-care (01) ==
LOC: EMR 10:04
PROVIDERS: Emergency Medicine; Physician Assistant; EMERGENCY PHYSICIAN Emergency Medicine; FAMILY PHYSICIAN Registered Nurse
DX: R10.9 Unspecified abdominal pain (principal); R11.2 Nausea with vomiting, unspecified; J45.909 Unspecified asthma, uncomplicated; K21.9 Gastro-esophageal reflux disease without esophagitis; F41.9 Anxiety disorder, unspecified; Z79.899 Other long term (current) drug therapy
CPT/HCPCS: 99284; 96374; 96375; 96376; 96361; 74177; 80053; 81003; 81015; 83690; 84703; 85025; 87086; Q9967